=== PATIENT | male | born 1995 | race Caucasian/White ===

== ENCOUNTER 2017-02-16 14:44 | Emergency (ER) | payer MEDICAID ==
[~2017-02-16] VITALS: Ht 172.7 cm; Wt 63.6 kg
[~2017-02-16 14:44] MED LIST: LEVE750T70 PO
[2017-02-16 14:46] VITALS: Ht 172.7 cm; Wt 63.6 kg
[2017-02-16] MEDS ORDERED: LORAZEPAM 2 MG INJ IM ONE (15:00)
--- NOTE | 2017-02-16 15:34 | ERA ---
ER Documentation Chief Complaint Date/Time DATE: 02/16/17 TIME: 15:23 Chief Complaint 5 days meth us, wanting check on hear tnad throat HPI 21-year-old male brought in by EMS for symptomatic methamphetamine abuse. Patient has been agitated for a few days and hyperactive although he denies suicidal or homicidal ideation. He denies chest pain or shortness of breath, no vomiting or diarrhea. Patient transported here by EMS without further complications. ROS All systems reviewed and are negative except as per history of present illness. Medications Home Meds Active Scripts Levetiracetam* (Keppra*) 750 Mg Tab, 750 MG PO BID for 60 Days, 2 Refills Prov:MUMTAZ WATKINS MD 02/24/15 Allergies Allergies: Coded Allergies: No Known Allergy (Unverified , 11/18/12) PMhx/Soc Drug abuse Medical and Surgical Hx: pt denies Medical Hx, pt denies Surgical Hx History of Surgery: No Anesthesia Reaction: No Hx Neurological Disorder: Yes (HEADACHES) Hx Respiratory Disorders: No Hx Cardiac Disorders: No Hx Psychiatric Problems: No Hx Miscellaneous Medical Probl: No (PT DENIES PAST M/S HX) Hx Alcohol Use: Yes (OCC BEER) Hx Substance Use: Yes (medical marijuana, meth) Hx Tobacco Use: No Smoking Status: Never smoker FmHx Family History: No diabetes Physical Exam Vitals Vital Signs Date Time Temp Pulse Resp B/P Pulse Ox O2 Delivery O2 Flow Rate FiO2 02/16/17 14:46 98.9 120 20 170/92 100 Physical Exam GENERAL: Well-developed, well-nourished, agitated HEENT: Moist mucous membranes, pink conjunctiva, no cervical spine tenderness or step-off deformities, no goiter, no jaundice or icterus, extraocular movements intact without pain. No submandibular induration, and no pharyngeal erythema NEURO: Alert and oriented 3, cranial nerves II through XII intact bilaterally, pupils equal round reactive to light, no focal deficits or facial asymmetry, sensation intact distally Strength 5/5 in upper and lower extremities bilaterally CARDIAC: Tachycardic and regular, no murmurs rubs or gallops LUNGS: Clear bilaterally no wheezing crackles or stridor ABDOMEN: Soft nontender, no guarding, no rigidity, no rebound, no psoas sign no obturator sign. Normoactive bowel sounds SKIN: Warm and dry to touch, no abrasions, contusions, or hematomas, no lacerations, no ecchymosis, no target lesions, and without ulcers EXTREMITIES: No clubbing cyanosis or edema, calves are bilaterally symmetrical, no Homans sign, no popliteal cord sign. Distal pulses equal and bilateral PSYCH: Agitated Results 24 hrs Current Medications Medications (Trade) Dose Ordered Sig/Farheen Route PRN Reason Start Time Stop Time Status Last Admin Dose Admin Lorazepam (Ativan) 2 mg ONCE ONCE IM 02/16/17 15:00 02/16/17 15:01 DC Procedures/MDM An EKG was performed, read by me reveals a sinus tachycardia at 119 bpm, normal axis, narrow QRS complex, with nonspecific rate related ST changes in all leads. No concerning ST elevations or depressions noted. Plan was to evaluate, manage, and observe the patient in the emergency department. I discussed plan of care with the patient as did the nurse, but unfortunately after this discussion patient eloped and ran out of the emergency department. On his way out he stated he did not want to stay but gave no reason as to why. Family members were also at the bedside tried convincing him to stay although he refused. Despite methamphetamine intoxication he was able to answer questions, follow commands, and understand what we talked about. He made his decision to leave despite the risks involved. Differential diagnoses considered, included but not limited to acute coronary syndrome, pulmonary embolism, aortic dissection, abdominal aortic aneurysm, sepsis, stroke, meningitis, encephalitis, pneumonia, appendicitis, cholecystitis , bowel obstruction, pyelonephritis, nephrolithiasis, cystitis, as well as metabolic, hematologic, and electrolyte abnormalities. As well as abscess, cellulitis, fractures, and dislocations. I invited him to return if he changes his mind. Departure Diagnosis: Primary Impression: Drug abuse Ruled Out: Drug use Condition: Stable FRANCESCA KENT MD Feb 16, 2017 15:34
== END 2017-02-16 15:58 | disposition left against medical advice (07) ==
LOC: E/R 14:44
DX: F15.10 Other stimulant abuse, uncomplicated (principal); R40.2252 Coma scale, best verbal response, oriented, at arrival to emergency department; R40.2142 Coma scale, eyes open, spontaneous, at arrival to emergency department; R40.2362 Coma scale, best motor response, obeys commands, at arrival to emergency department
CPT/HCPCS: 99282; J2060

== ENCOUNTER 2017-02-16 18:13 | Inpatient (IN) | payer MEDICAID ==
[~2017-02-16] VITALS: Ht 172.7 cm; Wt 63.6 kg
[2017-02-16 18:30] VITALS: Ht 172.7 cm; Wt 63.6 kg
[2017-02-16] MEDS ORDERED: LORAZEPAM 2 MG INJ IM ONE ×2 (18:30→20:00)
[2017-02-16 19:30] LABS: ADD SCAN DIFF NO
[2017-02-16 19:33] LABS: BASOPHILS % 0.3 % (0.0-2.0); HEMATOCRIT 47.3 % (42.0-52.0); HEMOGLOBIN 16.3 g/dl (14.0-18.0); LYMPHOCYTES # 1.1 10^3/ul (0.8-2.9); LYMPHOCYTES % 10.9 % (15.0-51.0); MEAN CORPUSCULAR HEMOGLOBIN 30.5 pg (29.0-33.0); MEAN CORPUSCULAR HGB CONC 34.5 g/dl (32.0-37.0); MEAN CORPUSCULAR VOLUME 88.4 fl (82.0-101.0); MONOCYTE # 0.5 10^3/ul (0.3-0.9); MONOCYTES % 5.1 % (0.0-11.0); NEUTROPHIL # 8.2 10^3/ul (1.6-7.5); NEUTROPHILS % 83.4 % (39.0-77.0); PLATELET COUNT 255 10^3/UL (140-415); RED BLOOD COUNT 5.35 10^6/ul (4.70-6.10); RED CELL DISTRIBUTION WIDTH 12.4 % (11.5-14.5); WHITE BLOOD COUNT 9.9 10^3/ul (4.8-10.8)
[2017-02-16 19:36] LABS: ALBUMIN 5.1 g/dl (3.3-4.9); CHLORIDE 101 mmol/L (97-110); SODIUM 143 mmol/L (135-144)
[2017-02-16 19:37] LABS: POTASSIUM 3.1 mmol/L (3.5-5.1)
[2017-02-16 19:39] LABS: ALANINE AMINOTRANSFERASE 28 IU/L (13-69); ALBUMIN/GLOBULIN RATIO 1.34; ALKALINE PHOSPHATASE 94 IU/L (42-121); ANION GAP 25 (8-16); ASPARTATE AMINO TRANSFERASE 63 IU/L (15-46); BILIRUBIN,INDIRECT 0.8 mg/dl (0-1.1); BILIRUBIN,TOTAL 0.8 mg/dl (0.2-1.3); BLOOD UREA NITROGEN 16 mg/dl (7-20); CALCIUM 9.9 mg/dl (8.4-10.2); CARBON DIOXIDE 20 mmol/L (21-31); CREATININE 0.99 mg/dl (0.61-1.24); GLUCOSE 128 mg/dl (70-220); TOTAL PROTEIN 8.9 g/dl (6.1-8.1)
[2017-02-16 19:43] LABS: ACETAMINOPHEN < 10.0 ug/ml (10.0-30.0)
[2017-02-16 19:44] LABS: SALICYLATE < 1.0 mg/dl (5.0-30.0)
--- NOTE | 2017-02-16 20:25 | ERD ---
ER Documentation Chief Complaint Date/Time DATE: 02/16/17 TIME: 20:23 Chief Complaint meth use and hallucinations (FRANCESCA KENT MD) HPI 21-year-old man brought back by EMS under [employer] custody for agitation combative behavior at home or using methamphetamine. Family members deny psychiatric history and patient has no suicidal homicidal ideation. He previously eloped from this emergency department. (FRANCESCA KENT MD) ROS All systems reviewed and are negative except as per history of present illness. (FRANCESCA KENT MD) Medications Home Meds Active Scripts Levetiracetam* (Keppra*) 750 Mg Tab, 750 MG PO BID for 60 Days, 2 Refills Prov:MUMTAZ WATKINS MD 02/24/15 Allergies Allergies: Coded Allergies: No Known Allergy (Unverified , 11/18/12) PMhx/Soc Medical and Surgical Hx: pt denies Medical Hx, pt denies Surgical Hx History of Surgery: No Anesthesia Reaction: No Hx Neurological Disorder: Yes (HEADACHES) Hx Respiratory Disorders: No Hx Cardiac Disorders: No Hx Psychiatric Problems: No Hx Miscellaneous Medical Probl: No (PT DENIES PAST M/S HX) Hx Alcohol Use: Yes (OCC BEER) Hx Substance Use: Yes (medical marijuana, meth) Hx Tobacco Use: No Smoking Status: Never smoker (FRANCESCA KENT MD) FmHx Family History: No diabetes (FRANCESCA KENT MD) Physical Exam Vitals Vital Signs Date Time Temp Pulse Resp B/P Pulse Ox O2 Delivery O2 Flow Rate FiO2 02/17/17 04:45 98.4 76 16 105/68 99 02/17/17 04:30 98.1 86 16 111/61 100 02/17/17 04:15 116 32 144/89 98 02/17/17 04:00 98.3 86 24 136/85 98 02/17/17 03:45 98.3 92 17 167/75 10 02/17/17 03:30 98.3 93 17 144/73 100 02/17/17 03:15 98.2 95 17 165/65 100 02/17/17 03:00 98.2 80 17 134/84 100 02/17/17 02:45 98.0 81 17 131/85 100 02/17/17 02:30 98.0 81 18 127/81 100 02/17/17 02:30 98.0 81 18 127/81 100 02/17/17 02:15 98.0 99 20 134/83 100 02/17/17 02:15 98.0 99 20 134/83 100 02/17/17 02:03 98.0 116 20 139/82 100 02/17/17 02:01 98.0 116 20 139/82 100 02/16/17 23:30 98.2 100 18 140/89 100 Room Air 02/16/17 20:30 97.9 106 18 145/94 98 Room Air 02/16/17 18:30 99.6 110 20 149/96 95 Room Air 02/16/17 18:30 98.1 124 20 145/91 99 (LAW SHORE MD) Physical Exam GENERAL: Well-developed, well-nourished, agitated HEENT: Moist mucous membranes, pink conjunctiva, no cervical spine tenderness or step-off deformities, no goiter, no jaundice or icterus, extraocular movements intact without pain. No submandibular induration, and no pharyngeal erythema NEURO: Alert and oriented 3, cranial nerves II through XII intact bilaterally, pupils equal round reactive to light, no focal deficits or facial asymmetry, sensation intact distally Strength 5/5 in upper and lower extremities bilaterally CARDIAC: Tachycardic and regular, no murmurs rubs or gallops LUNGS: Clear bilaterally no wheezing crackles or stridor ABDOMEN: Soft nontender, no guarding, no rigidity, no rebound, no psoas sign no obturator sign. Normoactive bowel sounds SKIN: Warm and dry to touch, no abrasions, contusions, or hematomas, no lacerations, no ecchymosis, no target lesions, and without ulcers EXTREMITIES: No clubbing cyanosis or edema, calves are bilaterally symmetrical, no Homans sign, no popliteal cord sign. Distal pulses equal and bilateral PSYCH: Agitated (FRANCESCA KENT MD) Result Diagram: 02/16/17185402/16/171854 Results 24 hrs Laboratory Tests Test 02/16/17 00:10 02/16/17 18:55 02/17/17 00:51 02/17/17 04:45 Sodium Level 137mmol/L 143mmol/L Potassium Level 3.4mmol/L 3.1mmol/L Chloride Level 102mmol/L 101mmol/L Carbon Dioxide Level 24mmol/L 20mmol/L Anion Gap 14 25 Blood Urea Nitrogen 12mg/dl 16mg/dl Creatinine 0.83mg/dl 0.99mg/dl Glucose Level 108mg/dl 128mg/dl Lactic Acid Level 1.2mmol/L Calcium Level 9.5mg/dl 9.9mg/dl White Blood Count 9.910^3/ul Red Blood Count 5.3510^6/ul Hemoglobin 16.3g/dl Hematocrit 47.3% Mean Corpuscular Volume 88.4fl Mean Corpuscular Hemoglobin 30.5pg Mean Corpuscular Hemoglobin Concent 34.5g/dl Red Cell Distribution Width 12.4% Platelet Count 14307^3/UL Mean Platelet Volume 12.0fl Neutrophils % 83.4% Lymphocytes % 10.9% Monocytes % 5.1% Eosinophils % 0.0% Basophils % 0.3% Nucleated Red Blood Cells % 0.0/100WBC Neutrophils # 8.210^3/ul Lymphocytes # 1.110^3/ul Monocytes # 0.510^3/ul Eosinophils # 0.010^3/ul Basophils # 0.010^3/ul Nucleated Red Blood Cells # 0.010^3/ul Total Bilirubin 0.8mg/dl Direct Bilirubin 0.00mg/dl Indirect Bilirubin 0.8mg/dl Aspartate Amino Transf (AST/SGOT) 63IU/L Alanine Aminotransferase (ALT/SGPT) 28IU/L Alkaline Phosphatase 94IU/L Total Protein 8.9g/dl Albumin 5.1g/dl Globulin 3.80g/dl Albumin/Globulin Ratio 1.34 Salicylates Level < 1.0mg/dl Acetaminophen Level < 10.0ug/ml Ethyl Alcohol Level < 10.0mg/dl Urine Opiates Screen NEGATIVE Urine Barbiturates NEGATIVE Urine Amphetamines Screen POSITIVE Urine Benzodiazepines Screen NEGATIVE Urine Cocaine Screen NEGATIVE Urine Cannabinoids POSITIVE Creatine Kinase 1390IU/L Current Medications Medications (Trade) Dose Ordered Sig/Farheen Route PRN Reason Start Time Stop Time Status Last Admin Dose Admin Lorazepam (Ativan) 2 mg ONCE ONCE IM 02/16/17 18:30 02/16/17 18:31 DC 02/16/17 18:20 Lorazepam 2 mg 2 mg ONCE ONCE IM 02/16/17 20:00 02/16/17 20:01 DC 02/16/17 19:41 Sodium Chloride (NS) 1,000 ml @ 1,000 mls/hr Q1H ONCE IV 02/17/17 00:00 02/17/17 00:59 DC 02/17/17 00:15 Lorazepam (Ativan) 2 mg ONCE ONCE IM 02/17/17 00:00 02/17/17 00:07 DC 02/17/17 00:16 Lorazepam 2 mg 2 mg ONCE ONCE IV 02/17/17 03:30 02/17/17 03:31 DC 02/17/17 03:51 Sodium Chloride (NS) 1,000 ml @ 1,000 mls/hr Q1H ONCE IV 02/17/17 03:30 02/17/17 04:29 DC 02/17/17 03:51 Haloperidol (Haldol) 5 mg ONCE ONCE IV 02/17/17 04:00 02/17/17 04:01 DC 02/17/17 03:51 Lorazepam (Ativan) 4 mg ONCE ONCE IV 02/17/17 04:00 02/17/17 04:01 DC 02/17/17 04:47 Diphenhydramine HCl 50 mg 50 mg ONCE ONCE IV 02/17/17 04:00 02/17/17 04:01 DC 02/17/17 04:47 Potassium Chloride 20 meq/ Sodium Chloride 110 ml @ 55 mls/hr ONCE ONCE IVPB 02/17/17 05:30 02/17/17 07:29 02/17/17 06:00 Sodium Chloride (NS) 1,000 ml @ 1,000 mls/hr Q1H ONCE IV 02/17/17 05:30 02/17/17 06:29 02/17/17 05:39 (LAW SHORE MD) Procedures/MDM I administered lorazepam 2 mg intramuscular injection 1 initially for agitation combative behavior. Patient was placed in 4. restraints for his in our protection. He later received another dose of lorazepam 2 milligram IM. CBC and electrolytes were unremarkable. Alcohol, aspirin, Tylenol levels were otherwise unremarkable. Differential diagnoses considered, included but not limited to acute coronary syndrome, pulmonary embolism, aortic dissection, abdominal aortic aneurysm, sepsis, stroke, meningitis, encephalitis, pneumonia, appendicitis, cholecystitis , bowel obstruction, pyelonephritis, nephrolithiasis, cystitis, as well as metabolic, hematologic, and electrolyte abnormalities. As well as abscess, cellulitis, fractures, and dislocations. Patient feels much better at this time, and vital signs are normal, symptoms have improved. I did give strict instructions to return to the ED if symptoms continue or worsen, patient will otherwise follow-up with primary care physician. Patient understood instructions and agreed to plan. (FRANCESCA KENT MD) Time 6:07 AM: Patient signed out to Dr. Shore at the beginning of my shift. Suspicion for methamphetamine abuse with agitation and psychosis. During 9 hours of observation the patient had multiple episodes of psychomotor agitation and aggressive behavior. His parents stated that he has no psychiatric history. He required chemical and physical restraints. His labs showed anion gap acidosis that improved with IV fluids. He had hypokalemia that required IV repletion. He was given significant doses of sedatives. His CK was elevated at 1300. He was given 3 L of fluid and had minimal urine output. Send her to Dr. Velazquez at shift change. We will continue to give additional fluids, trend CK , and reevaluate for need for psychiatric evaluation when awake. (LAW SHORE MD) Departure Diagnosis: Primary Impression: Methamphetamine abuse Additional Impression: Hypokalemia Condition: Good Patient Instructions: Understanding Methamphetamine Abuse and Addiction FRANCESCA KENT MD Feb 16, 2017 20:25 LAW SHORE MD Feb 17, 2017 06:09
[2017-02-16 20:52] LABS: ETHANOL < 10.0 mg/dl
[2017-02-17] MEDS ORDERED: LORAZEPAM 2 MG INJ IM ONE
[2017-02-17 00:46] LABS: CALCIUM 9.5 mg/dl (8.4-10.2); CREATININE 0.83 mg/dl (0.61-1.24); POTASSIUM 3.4 mmol/L (3.5-5.1)
[2017-02-17 02:39] LABS: BARBITURATES NEGATIVE (NEGATIVE); BENZODIAZEPINES NEGATIVE (NEGATIVE); CANNABINOIDS POSITIVE (NEGATIVE); COCAINE NEGATIVE (NEGATIVE); OPIATES NEGATIVE (NEGATIVE)
[2017-02-17] MEDS ORDERED: LORAZEPAM 2 MG INJ IV ONE ×3 (03:30→11:30)
[2017-02-17] MEDS ORDERED: SOD CHLORIDE 0.9% 1,000 ML IV ONE ×4 (03:30→10:30)
[2017-02-17] MEDS ORDERED: LORAZEPAM 2 MG INJ ONE (03:59)
[2017-02-17] MEDS ORDERED: DIPHENHYDRAMINE 50 MG INJ ONE (03:59)
[2017-02-17] MEDS ORDERED: HALOPERIDOL 5 MG INJ IV ONE (04:00)
[2017-02-17] MEDS ORDERED: DIPHENHYDRAMINE 50 MG INJ IV ONE (04:00)
[2017-02-17] MEDS ORDERED: POTASSIUM CHLORIDE 20 MEQ in SOD CHLORIDE 0.9% 100 ML IVPB ONE (05:30)
[2017-02-17] MEDS ORDERED: POTASSIUM CHLORIDE 50 ML IVPB ONE (13:30)
[2017-02-17] MEDS: DOCUSATE SODIUM 100 MG CAP PO SCH ×2 (13:30→21:50)
[2017-02-17] MEDS: CHLORDIAZEPOXIDE 25 MG CAP PO SCH ×2 (13:30→21:51)
[2017-02-17] MEDS ORDERED: ONDANSETRON 4 MG INJ IV PRN ×2 (13:30)
[2017-02-17] MEDS ORDERED: ACETAMINOPHEN 325 MG TAB PO PRN (13:30)
[2017-02-17] MEDS ORDERED: LORAZEPAM 2 MG INJ IV PRN (13:30)
[2017-02-17] MEDS: FAMOTIDINE 20 MG INJ IV SCH (13:31)
[2017-02-17] MEDS: SOD CHLORIDE 0.9% 1,000 ML IV SCH ×2 (13:31→22:05)
--- NOTE | 2017-02-17 14:11 | QN ---
Documentation Comment This 21-year-old male was signed out to me. Is very agitated on methamphetamines on arrival. His CK returned elevated. I ordered a repeat CK after the patient received 2 L of fluid. The patient was still agitated and required multiple doses of Ativan. CK had not significantly reduced. Patient will definitely need a psychiatric consult but is also concern for rhabdomyolysis as he may have continued CK release from his muscle use is very agitated. Psychiatric facility cannot monitored patient's renal function for rhabdomyolysis and is important to admit him medically to see reduction in his CK without any rise in creatinine. Ordered additional liter of fluid. I spoke to Dr. Negro about the need for monitoring for rhabdo as well as the need for psychiatric consult. Patient is being admitted in stable condition Additional diagnosis: Rhabdomyolysis MATTIE DE GUZMAN DO Feb 17, 2017 14:11
--- NOTE | 2017-02-17 16:26 | HP ---
DATE OF ADMISSION: 02/16/2017 PRESENTING COMPLAINT: Altered mentation. HISTORY OF PRESENTING COMPLAINT: This patient was seen in the emergency room last night, brought in by EMS under [employer] custody for agitation and combative behavior at home. He has been seen here befo sujatha and has a history of methamphetamine and marijuana use. He had 1 episode of seizure in the past and was admitted for further workup and was seen by neurology and the seizure was thought to be seco ndary to toxicology from the drugs he takes. Other than that, he does not have any other significan t medical history and there is no family at the bedside to speak to right now. The patient has been observed in the emergency room and was found to have elevated creatinine kinase levels. This was m anaged aggressively by the ER doctors and it is hopeful that these numbers will come down and patien t could be discharged to [employer] custody versus to the psychiatric unit. However, the remains somewhat altered and not fully following commands and not fully oriented at this time. He remains somewhat agitated requiring intubation adjuvant therapy and his creatinine kinase levels have not significan tly changed and as such he is being admitted for continued inpatient management. PAST MEDICAL HISTORY: Single seizure episode in the past, methamphetamine abuse, multi-substance ab use for recreational reasons. PAST SURGICAL HISTORY: Denies. ALLERGIES: NO KNOWN DRUG ALLERGIES. SOCIAL HISTORY: Summarized as above. REVIEW OF SYSTEMS: Essentially, this is unobtainable due to patient's overall status. At this time , he has been sedated again with Ativan. He will arouse, but not fully participate in history emeka sanders PHYSICAL EXAMINATION: VITAL SIGNS: Temperature 96, pulse 90, respirations 19, blood pressure 121/100, saturations 100% on room air. GENERAL: The patient was sleeping, but arousable, is not clear at this time. HEENT: Head is normocephalic. Pupils equal and reactive. Mucous membranes are moist. No scleral jaundice. CHEST: Clear to auscultation. CARDIOVASCULAR: S1, S2, no murmurs. ABDOMEN: Soft, nontender, nondistended. EXTREMITIES: There is no lower extremity edema. NEUROLOGIC: He does not seem to have any focal deficits. He is moving all extremities; however, me ntally he is still somewhat altered. LABORATORY VALUES: Urine tox screen was positive for amphetamines and marijuana. Chemistry, he had hypokalemia, potassium of 3.1 anion gap of 25, CO2 of 20. Glucose was 128. AST was elevated at 63 , more than double ALT, but bilirubin levels were normal. Creatinine kinase was 1390 when he came i n and is just improved now to 1375. CBC did have neutrophilia, but no bandemia and no leukocytosis. IMPRESSION: A 21-year-old male with history of multi-substance abuse for recreational reasons. Man aged as follows: 1. Altered mental status with agitation, likely secondary to toxic encephalopathy from substance ab use. 2. Acute rhabdomyolysis, likely secondary to methamphetamine use. 3. Isolated seizure episode in the past, again, thought to be secondary to substance abuse. 4. Hypokalemia. PLAN: We are going to admit patient to medical/surgical, start him on a banana bag in addition to a ggressive fluid hydration as well as Librium therapy. We will start him on a clear liquid diet and advance as tolerated. Provide antiemetics, provide aspiration precautions. Continue p.r.n. Ativan for agitation. Also use SCDs for prophylaxis, which is not exactly indicated in this patient. Fur ther intervention will depend on his response to above measures. He has been treated with IV potass ium chloride 20 mEq x1 in the ER for a potassium of 3.1. However, I do not think this is sufficient and will give him another 20. Plan of care has been discussed with nursing staff and the ER doctor s. Questions have been answered. Further intervention will depend on clinical course. Dictated By: JESSIKA LEMON MD BA/BON Conf#: [id number] DID#: [id number]
[2017-02-17 18:30] VITALS: PULSE 87; TEMP 97.9
[2017-02-18] MEDS: SOD CHLORIDE 0.9% 1,000 ML IV SCH ×2 (06:01→13:30)
[2017-02-18 08:56] VITALS: BP 124/60; RESP 18
[2017-02-18] MEDS: CHLORDIAZEPOXIDE 25 MG CAP PO SCH ×3 (09:18→20:31)
[2017-02-18] MEDS: FAMOTIDINE 20 MG INJ IV SCH (09:18)
[2017-02-18] MEDS: DOCUSATE SODIUM 100 MG CAP PO SCH ×2 (09:18→20:31)
--- NOTE | 2017-02-18 11:02 | PSY ---
Date/Time of Note Date/Time of Note DATE: 02/18/17 TIME: 10:57 Psychiatric Subjective Eval Consent Pt consented to telemedicine: Yes Subjective Evaluation Patient location: inpatient Chief Complaint: meth use and hallucinations History of present illness 21 yo male with hx amphetamine dependence admitted due to rhabdomyolysis and agitation; pt has a hx meth induced seizures as well. He is irritable and tangential, paranoid. he says he wants to t go home and has no understanding why he is in the hospital; he says bad people hurt him and put meth into his water then then the false ambulance came and took him to the hospital there the draw his blood. he denies meth use even though has documented extensive hx. he denies si or hi denies ah or vh, but is paranoid and delusional, tangential. Past psychiatric history pt has a hx rehab. 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 [employer] Psychiatric Objective Eval Review of Systems: Review of Systems: Not Applicable Mental Status Examination: Appearance: Groomed Eye Contact: Good Psychomotor Activity: Normal Behavior: Guarded Speech: Clear AFFECT: Guarded Mood: Irritable Though Process: Tangential Thought Content: Delusions Suicidal: No Homicidal: No On 72 hour hold: No Orientation: x3 Cognition: Alert Insight: Impared Judgement: Impared Laboratory Results Laboratory Tests Test 02/16/17 18:55 02/17/17 00:51 02/17/17 04:45 02/17/17 08:30 White Blood Count 9.910^3/ul Red Blood Count 5.3510^6/ul Hemoglobin 16.3g/dl Hematocrit 47.3% Mean Corpuscular Volume 88.4fl Mean Corpuscular Hemoglobin 30.5pg Mean Corpuscular Hemoglobin Concent 34.5g/dl Red Cell Distribution Width 12.4% Platelet Count 10594^3/UL Mean Platelet Volume 12.0fl Neutrophils % 83.4% Lymphocytes % 10.9% Monocytes % 5.1% Eosinophils % 0.0% Basophils % 0.3% Nucleated Red Blood Cells % 0.0/100WBC Neutrophils # 8.210^3/ul Lymphocytes # 1.110^3/ul Monocytes # 0.510^3/ul Eosinophils # 0.010^3/ul Basophils # 0.010^3/ul Nucleated Red Blood Cells # 0.010^3/ul Sodium Level 143mmol/L Potassium Level 3.1mmol/L Chloride Level 101mmol/L Carbon Dioxide Level 20mmol/L Anion Gap 25 Blood Urea Nitrogen 16mg/dl Creatinine 0.99mg/dl Glucose Level 128mg/dl Calcium Level 9.9mg/dl Total Bilirubin 0.8mg/dl Direct Bilirubin 0.00mg/dl Indirect Bilirubin 0.8mg/dl Aspartate Amino Transf (AST/SGOT) 63IU/L Alanine Aminotransferase (ALT/SGPT) 28IU/L Alkaline Phosphatase 94IU/L Total Protein 8.9g/dl Albumin 5.1g/dl Globulin 3.80g/dl Albumin/Globulin Ratio 1.34 Salicylates Level < 1.0mg/dl Acetaminophen Level < 10.0ug/ml Ethyl Alcohol Level < 10.0mg/dl Urine Opiates Screen NEGATIVE Urine Barbiturates NEGATIVE Urine Amphetamines Screen POSITIVE Urine Benzodiazepines Screen NEGATIVE Urine Cocaine Screen NEGATIVE Urine Cannabinoids POSITIVE Creatine Kinase 1390IU/L 1375IU/L Assessment and Plan Assessment/Diagnosis [place] I: AMPHETAMINE INDUCED PSYCHOSIS [place] II: DEFERED [place] III: PER RECORD [place] IV: MODERATE [place] V: GAF 25 Recommendation/Plan Medication Management START ON GEODON 20 MG PO BID WITH FOOD, INCREASE TO 40 MG PO BID TOMORROW. PLEASE MONITOR ECG. Psychotherapy DEFER TO INPT Follow-up/Disposition TRANSFER TO INPT PSYCH ON A HOLD IF MEDICALLY CLEARED. GRAVELY DISABLED. IF NOT CLEARED, NEEDS TO BE REASSESED PRIOR TO DISCHARGE 2001 Recommendation: Place Hold BELEN DEVINE MD Feb 18, 2017 11:02
[2017-02-18] MEDS: MULTIVITAMINS 10 ML, THIAMINE 100 MG, FOLIC ACID 1 MG in SOD CHLORIDE 0.9% 1,000 ML IVPB SCH (11:10)
[2017-02-18 16:05] LABS: ADD SCAN DIFF NO
[2017-02-18 16:07] LABS: BASOPHILS % 0.4 % (0.0-2.0); EOSINOPHILS # 0.1 10^3/ul (0.0-0.5); EOSINOPHILS % 0.9 % (0.0-7.0); HEMATOCRIT 38.3 % (42.0-52.0); HEMOGLOBIN 13.3 g/dl (14.0-18.0); LYMPHOCYTES # 1.3 10^3/ul (0.8-2.9); LYMPHOCYTES % 22.6 % (15.0-51.0); MEAN CORPUSCULAR HEMOGLOBIN 30.7 pg (29.0-33.0); MEAN CORPUSCULAR HGB CONC 34.7 g/dl (32.0-37.0); MEAN CORPUSCULAR VOLUME 88.5 fl (82.0-101.0); MEAN PLATELET VOLUME 11.5 fl (7.4-10.4); MONOCYTE # 0.4 10^3/ul (0.3-0.9); MONOCYTES % 7.6 % (0.0-11.0); NEUTROPHIL # 3.8 10^3/ul (1.6-7.5); PLATELET COUNT 202 10^3/UL (140-415); RED BLOOD COUNT 4.33 10^6/ul (4.70-6.10); RED CELL DISTRIBUTION WIDTH 12.2 % (11.5-14.5); WHITE BLOOD COUNT 5.6 10^3/ul (4.8-10.8)
[2017-02-18] MEDS ORDERED: POTASSIUM CHLORIDE (SR) 20 MEQ TAB PO STA (16:18)
[2017-02-18 16:22] LABS: ALBUMIN 3.7 g/dl (3.3-4.9)
[2017-02-18 16:23] LABS: POTASSIUM 3.6 mmol/L (3.5-5.1)
[2017-02-18 16:25] LABS: ALBUMIN/GLOBULIN RATIO 1.48; BILIRUBIN,INDIRECT 0.6 mg/dl (0-1.1); BILIRUBIN,TOTAL 0.6 mg/dl (0.2-1.3); CREATININE 0.7 mg/dl (0.61-1.24); TOTAL PROTEIN 6.2 g/dl (6.1-8.1)
[2017-02-18 16:26] LABS: CALCIUM 8.3 mg/dl (8.4-10.2); MAGNESIUM 1.8 mg/dl (1.7-2.5)
--- NOTE | 2017-02-18 16:27 | PN ---
Date/Time of Note Date/Time of Note DATE: 02/18/17 TIME: 16:20 Assessment/Plan VTE Prophylaxis VTE Prophylaxis Intervention: ambulation Lines/Catheters IV [facility]from [facility] Saline Lock Assessment/Plan Chief Complaint/Hosp Course 1. Altered mental status with agitation, likely secondary to toxic encephalopathy from Meth abuse 2. Acute rhabdomyolysis, likely secondary to methamphetamine use -cont IVF 3. Isolated seizure episode in the past, again, thought to be secondary to substance abuse. 4. Hypokalemia-repleted 5. Psychosis -Tele psych eval appreciated, rec is for transfer to Psych facility PPX- Ambulation Problems: Subjective 24 Hr Interval Summary Constitutional: no complaints Exam/Review of Systems Vital Signs Vitals Vital Signs Date Time Temp Pulse Resp B/P Pulse Ox O2 Delivery O2 Flow Rate FiO2 02/18/17 08:56 97.9 51 18 124/60 100 02/17/17 18:30 Room Air Intake and Output 02/17/17 02/17/17 02/18/17 15:00 23:00 07:00 Intake Total 1200 ml Output Total 500 ml 600 ml 950 ml Balance -500 ml -600 ml 250 ml Exam Constitutional: alert Respiratory: clear to auscultation Cardiovascular: regular rate and rhythm Gastrointestinal: soft, No distended Musculoskeletal: nl extremities to inspection Results Result Diagram: 02/16/17185402/16/171854 Medications Medications Current Medications Chlordiazepoxide 25 mg 25 mg TID PO Last administered on 02/18/17 13:31; Admin Dose 25 MG; Start 02/17/17 at 13:30 Multivitamins/ Thiamine HCl/ Folic Acid/Sodium Chloride (Mvi Adult/ Vitamin B1/ Folic Acid/NS) 1,011.2 ml @ 125 mls/ hr DAILY@09 IVPB Last administered on 11:10; Admin Dose 125 MLS/HR; Start 02/18/17 at 09:00; Stop 02/21/17 at 08:59 Ondansetron HCl (Zofran Inj) 4 mg Q6H PRN IV NAUSEA AND/OR VOMITING; Start 02/17 at 13:30 Lorazepam (Ativan) 2 mg Q4H PRN IV agitation; Start 02/17/17 at 13:30 Famotidine (Pepcid Iv) 20 mg DAILY IV Last administered on 02/18/17 09:18; Admin Dose 20 MG; Start 02/17/17 at 13:30 Docusate Sodium 100 mg 100 mg BID PO Last administered on 02/18/17 09:18; Admin Dose 100 MG; Start 02/17/17 at 13:30 Sodium Chloride (NS) 1,000 ml @ 125 mls/hr Q8H IV Last administered on 06:01; Admin Dose 125 MLS/HR; Start 02/17/17 at 13:30 TAIWO SHEA Feb 18, 2017 16:27
[2017-02-18 19:44] VITALS: BP 125/70; RESP 18
[2017-02-19] MEDS: SOD CHLORIDE 0.9% 1,000 ML IV SCH ×2 (03:24→05:41)
[2017-02-19 08:20] VITALS: BP 122/69; RESP 18
[2017-02-19 08:39] LABS: ADD SCAN DIFF NO
[2017-02-19 08:40] LABS: BASOPHILS % 0.2 % (0.0-2.0); EOSINOPHILS # 0.1 10^3/ul (0.0-0.5); EOSINOPHILS % 1.3 % (0.0-7.0); HEMATOCRIT 40.2 % (42.0-52.0); HEMOGLOBIN 13.2 g/dl (14.0-18.0); LYMPHOCYTES # 2.1 10^3/ul (0.8-2.9); LYMPHOCYTES % 38.5 % (15.0-51.0); MEAN CORPUSCULAR HEMOGLOBIN 29.8 pg (29.0-33.0); MEAN CORPUSCULAR HGB CONC 32.8 g/dl (32.0-37.0); MEAN CORPUSCULAR VOLUME 90.7 fl (82.0-101.0); MEAN PLATELET VOLUME 10.9 fl (7.4-10.4); MONOCYTE # 0.4 10^3/ul (0.3-0.9); MONOCYTES % 7.7 % (0.0-11.0); NEUTROPHIL # 2.9 10^3/ul (1.6-7.5); NEUTROPHILS % 51.9 % (39.0-77.0); PLATELET COUNT 183 10^3/UL (140-415); RED BLOOD COUNT 4.43 10^6/ul (4.70-6.10); RED CELL DISTRIBUTION WIDTH 12.7 % (11.5-14.5); WHITE BLOOD COUNT 5.6 10^3/ul (4.8-10.8)
[2017-02-19] MEDS: CHLORDIAZEPOXIDE 25 MG CAP PO SCH (08:50)
[2017-02-19] MEDS: DOCUSATE SODIUM 100 MG CAP PO SCH (08:50)
[2017-02-19] MEDS: FAMOTIDINE 20 MG INJ IV SCH (08:50)
[2017-02-19] MEDS: MULTIVITAMINS 10 ML, THIAMINE 100 MG, FOLIC ACID 1 MG in SOD CHLORIDE 0.9% 1,000 ML IVPB SCH (08:53)
[2017-02-19 09:17] LABS: ALBUMIN 3.9 g/dl (3.3-4.9); POTASSIUM 3.2 mmol/L (3.5-5.1)
[2017-02-19 09:19] LABS: BILIRUBIN,INDIRECT 0.4 mg/dl (0-1.1); BILIRUBIN,TOTAL 0.4 mg/dl (0.2-1.3); CREATININE 0.77 mg/dl (0.61-1.24)
[2017-02-19 09:20] LABS: ALBUMIN/GLOBULIN RATIO 1.39; CALCIUM 8.6 mg/dl (8.4-10.2); TOTAL PROTEIN 6.7 g/dl (6.1-8.1)
[2017-02-19] MEDS ORDERED: POTASSIUM CHLORIDE (SR) 20 MEQ TAB PO STA (09:46)
--- NOTE | 2017-02-19 18:48 | DS ---
DATE OF ADMISSION: 02/17/2017 DATE OF DISCHARGE: 02/19/2017 POSTOPERATIVE DIAGNOSES: 1. 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 2. Early rhabdomyolysis improved with IV fluids. 3. Epileptic seizures in the past, possibly secondary to substance abuse. 4. Hypokalemia, repleted. HOSPITAL COURSE: The patient is a 21-year-old male with multiple hospitalizations for meth-related issues with toxic encephalopathy from substance abuse. The patient also was found to have acute rha bdomyolysis secondary to methamphetamine. He was given IV fluids. The patient was seen by tele psy and the patient was diagnosed with amphetamine-induced psychosis. The patient was started on Dony don 20 mg p.o. b.i.d. to be increased to 40 mg b.i.d. RECOMMENDATION: The patient is transferred to inpatient psych and put on hold, was medically cleare d. The patient was still psychotic, ____disabled. The patient was felt to be medically stable for discharge from hospital to a psych facility. The patient did not want to go to a psych facility and the patient eloped or left AMA. On day of discharge, the patient's vitals were stable, but patient did need to go to a psych facility. Hospital advisor was aware the patient left AMA. CONDITION ON DISCHARGE: Fair, but patient was psychotic and ____. The patient left AMA. MEDICATIONS: No medications. Recommendations were given as the patient left AMA. FOLLOWUP: No followup instructions were given, as the patient left AMA. Dictated By: TAIWO HOWE/BON Conf#: [id number] DID#: [id number]
== END 2017-02-19 11:15 | disposition left against medical advice (07) | DRG 917 ==
LOC: E/R 18:13 → MS2 02-17 13:24
PROVIDERS: ADMIT Family Medicine; ATTEND Family Medicine
DX: T43.621A Poisoning by amphetamines, accidental (unintentional), initial encounter (principal); G92 Toxic encephalopathy; M62.82 Rhabdomyolysis; F15.159 Other stimulant abuse with stimulant-induced psychotic disorder, unspecified; E87.6 Hypokalemia; G40.909 Epilepsy, unspecified, not intractable, without status epilepticus
CPT/HCPCS: 36415; 80048; 80053; 80306; 80307; 82550; 82553; 83605; 83735; 84484; 85025; 96361; 96372; 96374; 96375; 96376; J1200; J1630; J2060; J3411; J3480; J7030